=== PATIENT | male | born 1960 | race Caucasian/White ===

== ENCOUNTER → 2018-01-25 | Outpatient (CLI) | payer OTHER | LOC: CAT 15:02 | DX: M25.512 Pain in left shoulder (principal); R22.9 Localized swelling, mass and lump, unspecified ==

== ENCOUNTER → 2020-12-07 | Outpatient (CLI) | payer OTHER | LOC: ULTRA 08:04 | PROVIDERS: ATTEND Nurse Practitioner | DX: I77.1 Stricture of artery (principal) ==